=== PATIENT | female | born 1985 | race Caucasian/White ===

== ENCOUNTER 2016-06-21 13:46 | Outpatient (CLI) | payer OTHER ==
--- NOTE | 2016-06-21 17:18 | MRI ---
RIGHT HIP MRI WITHOUT IV CONTRAST: History: 31-year-old female with right sided pain and right hip pain. FINDINGS: Multiplanar, multisequence MRI examination of the right hip is performed. No evidence of abnormal marrow signal within the right hip or femur to suggest avascular necrosis, f racture or acute stress injury. No evidence of multiple or acute tendon injury. There is metallic susceptibility artifact at the region of the right lumbosacral spine secondary to right sided fusion and pedicle screw placement. The internal soft tissue pelvis shows no significant abnormality, ramirez khai, and ovaries are somewhat small. No evidence for hip labral tear. Visualized right sciatic ner ve course appears unremarkable. IMPRESSION: Unremarkable right hip MRI. No evidence for acute internal derangement. POS: [facility]
== END 2016-06-21 13:47 | disposition home or self-care (01) ==
LOC: BURMRI 13:46
PROVIDERS: ATTEND Neurological Surgery
DX: M25.551 Pain in right hip (principal)

== ENCOUNTER 2016-10-22 12:08 | Outpatient (CLI) | payer OTHER ==
--- NOTE | 2016-10-22 21:32 | RAD ---
LUMBAR SPINE: Date: 10-22-16 Comparison: 04-10-16 done at [facility]. Technique: Multiple flexion and extension views were provided. FINDINGS: On the prior study the patient had a grade I spondylolisthesis of L5 on S1 that was measured in the 6-8 mm range. Today's exam shows measurements in the 9-11 mm range in the neutral position. At least one of the vi ews (which actually appears to be an extension) has a 15-16 mm off set reaching the level of a grade II spondylolisthesis of L5 on S1. The area is not seen optimally on today's study but it is clear o verall that the degree of anterior slippage of L5 on S1 is greater than it was in 2016. There also a ppears to be some movement now between flexion and extension (varying from about 9 to 15 mm of off s et). A posterior fusion has been done on the right side at L5-S1 and this appears no different than before. Regarding the SI joints, no sclerosis or gross bony abnormality was seen. IMPRESSION: Interval increase in the anterior slippage of L5 on S1 since 2016. These does appear to be some mobi lity between flexion and extension in the 6 mm range or so. The synthetic disc appears to be in norm al position. POS: HOME
== END 2016-10-22 12:09 | disposition home or self-care (01) ==
LOC: BURRAD 12:08
PROVIDERS: ATTEND Specialist
DX: M53.3 Sacrococcygeal disorders, not elsewhere classified (principal)
CPT/HCPCS: 72110

== ENCOUNTER 2017-02-27 15:42 | Outpatient (CLI) | payer MEDICARE, OTHER ==
--- NOTE | 2017-02-27 21:32 | CT ---
CT LUMBAR SPINE 02/27/[address] of the lumbar spine was performed for evaluation of low back and right groin pain. The pat ient has had a prior posterior fusion at L5-S1 with pedicle screws for spondylolisthesis of L5 on S1 . Bilateral spondylolysis at L5 was noted. The sagittal view shows the right pedicle screw of S1 to angulate inferiorly a bit as well as a smal l lucency near its origin suggesting that there might be a break in the screw itself. Its appearance does not look substantially different than the December or January plain film. Slight lucency around the pedicle screw of S1 on the right was noted on the plain radiograph. It is slightly more lucent arou nd it than the opposite side, but not by much. The left pedicle screw of L5 barely goes through the left pedicle of that level with the rest of the screw to its tip actually lying outside of the vertebra, just lateral to the left side of the verte bral body. The lumbar spine showed no protruding discs, foraminal stenosis, or central canal stenosis at any l evel. There is about 1 cm of anterolisthesis of L5 on S1. No area of bony destruction was seen. IMPRESSION: 1. No acute lumbar findings. 2. Left pedicle screw of L5 has a significant portion of the screw outside of the bony vertebra as described above. 3. Right pedicle screw of S1 angulates downward slightly and has slight lucency around it. The appearance does not seem substantially different than the December plain radiograph. POS: HOME
== END 2017-02-27 15:43 | disposition home or self-care (01) ==
LOC: BURCT 15:42
PROVIDERS: ATTEND Family Medicine
DX: M54.16 Radiculopathy, lumbar region (principal)
CPT/HCPCS: 72131

== ENCOUNTER 2017-03-22 14:20 | Outpatient (CLI) | payer MEDICARE, OTHER ==
--- NOTE | 2017-03-22 22:45 | RAD ---
LUMBAR SPINE TWO VIEWS 03/22/17 Flexion and extension lateral views were obtained. There has been a prior posterior fusion at the L5 -S1 level. There is a prominent spondylolisthesis of L5 on S1. An extension of the L5 vertebra was displaced 1. 7 cm anteriorly. In flexion, it was about 2.0 cm. No abnormal motion was seen elsewhere. IMPRESSION: 3 mm difference between flexion and extension. POS: HOME
== END 2017-03-22 14:21 | disposition home or self-care (01) ==
LOC: BURRAD 14:20
PROVIDERS: ATTEND Specialist
DX: M51.17 Intervertebral disc disorders with radiculopathy, lumbosacral region (principal)
CPT/HCPCS: 72100

== ENCOUNTER 2017-07-10 10:20 | Outpatient (CLI) | payer OTHER ==
--- NOTE | 2017-07-10 21:46 | ULT ---
PELVIC ULTRASOUND WITH TRANSVAGINAL IMAGING 07/10/17 Initially a pelvic ultrasound was done using the abdominal transducer. To see structures better, a sw itch was made to the endovaginal probe. The uterus measured 4.3 x 2.9 x 3.4 cm and had a normal 4 mm thick endometrium. No focal pathology wa s seen in the uterus. Both the right ovary and the left ovary are unremarkable in appearance. The rig ht ovary was 1.8 cm long and the left was 1.7 cm. Blood flow was seen in each. Incidentally noted was a small Nabothian cyst at the cervix that may have some internal debris. IMPRESSION: No acute pelvic finding. POS: HOME
== END 2017-07-10 10:21 | disposition home or self-care (01) ==
LOC: BURULT 10:20
PROVIDERS: ATTEND Nurse Practitioner
DX: R10.2 Pelvic and perineal pain (principal)
CPT/HCPCS: 76856

== ENCOUNTER 2018-06-12 19:25 | Emergency (ER) | payer OTHER | END 2018-06-12 20:00 | disposition home or self-care (01) | LOC: BURERS 19:25 | DX: F41.9 Anxiety disorder, unspecified (principal); K21.9 Gastro-esophageal reflux disease without esophagitis; D64.9 Anemia, unspecified; E03.9 Hypothyroidism, unspecified; E78.5 Hyperlipidemia, unspecified; F32.9 Major depressive disorder, single episode, unspecified; F43.10 Post-traumatic stress disorder, unspecified; F17.210 Nicotine dependence, cigarettes, uncomplicated; Z79.899 Other long term (current) drug therapy | CPT/HCPCS: 99283 ==

== ENCOUNTER 2019-04-16 21:26 | Emergency (ER) | payer MEDICARE, OTHER ==
[2019-04-16 21:53] LABS: Bilirubin Negative (Negative); Blood, Urine Moderate (Negative); Clarity Slightly Cloudy (Clear); Glucose, Urine (Dipstick) Negative (Negative); Leukocyte Small (Negative); Nitrite Negative (Negative); Pregnancy Test - Urine (BHCG) Negative (Negative); Protein, Urine (Dipstick) 30 mg/dL (Neg-Trace)
[2019-04-16 21:54] LABS: Pregu Control Background? CLEAR/WHITE (CLR/WHITE); Pregu Control Bar Appear? YES (CONTROL BAR); Specific Gravity 1.025 (1.002-1.036)
[2019-04-16] MEDS ORDERED: Ondansetron PF 4 MG/2 ML Vial ONE (21:56)
[2019-04-16] MEDS ORDERED: Ketorolac Tromethamine 30 MG/ML VIAL ONE (21:56)
[2019-04-16 21:59] LABS: #Basophils 0.1 thou/uL (0.0-0.2); #Eosinphils 0.1 thou/uL (0.0-0.7); #Lymphocytes 2.7 thou/uL (1.20-3.40); #Monocytes 1.2 thou/uL (0.11-0.59); #Neutrophils 12.6 thou/uL (1.40-6.50); %Basophils 0.5 % (0.0-1.0); %Eosinophils 0.5 % (0.0-10.0); %Lymphocytes 15.9 % (21.0-51.0); %Monocytes 7.4 % (0.0-10.0); %Neutrophils 75.6 % (42.0-75.0); Hemoglobin 14.2 g/dL (12.0-16.0); Mean Corpuscular HGB CONC 32.2 g/dL (32.0-36.0); Mean Platelet Volume 8.3 fL (7.4-10.4); Platelet Count 274 thou/uL (130-400); RBC Distribution Width 13.9 % (11.5-14.5); Red Blood Cell (RBC) Count 4.72 mill/uL (4.20-5.40); White Blood Cell (WBC) Count 16.7 thou/uL (4.8-10.8)
[2019-04-16 22:02] LABS: Bacteria/HPF Rare-Few HPF (None Seen); Squamous Epithelial 0-3 HPF (0-3)
[2019-04-16 22:03] LABS: Calcium Oxalate Crystals 1+ HPF (None Seen)
[2019-04-16 22:12] LABS: ALT (SGPT) 19 U/L (8-55); AST (SGOT) 19 U/L (5-34); Albumin 3.9 g/dL (3.5-5.0); Alkaline Phosphatase 125 U/L (40-110); Anion Gap 13 mmol/L (10-20); BUN (Urea Nitrogen) 16 mg/dL (7.0-18.7); Bilirubin, Total 0.6 mg/dL (0.2-1.2); Calc. Creatinine Clearance 0 mL/min (70-130); Calcium 9.3 mg/dL (7.8-10.44); Carbon Dioxide 25 mmol/L (22-29); Chloride 105 mmol/L (98-107); Estimated GFR-MDRD 80; Globulin 2.7 g/dL (2.4-3.5); Glucose 94 mg/dL (70-105); Lipase 30 U/L (8-78); Protein, Total 6.6 g/dL (6.0-8.3); Sodium 139 mmol/L (136-145)
== END 2019-04-16 22:25 | disposition home or self-care (01) ==
LOC: BURERS 21:26
DX: N20.0 Calculus of kidney (principal); E03.9 Hypothyroidism, unspecified; E78.5 Hyperlipidemia, unspecified; F41.9 Anxiety disorder, unspecified; F32.9 Major depressive disorder, single episode, unspecified; F43.10 Post-traumatic stress disorder, unspecified; F17.210 Nicotine dependence, cigarettes, uncomplicated; Z79.899 Other long term (current) drug therapy
CPT/HCPCS: 80053; 81003; 81015; 81025; 83690; 85025; 96374; 96375; J1885; J2405

== ENCOUNTER 2020-03-15 20:43 | Emergency (ER) | payer MEDICARE ==
[2020-03-15] MEDS ORDERED: hydrOXYzine 25 MG TAB ONE (21:36)
== END 2020-03-15 21:41 | disposition home or self-care (01) ==
LOC: BURERS 20:43
DX: F41.1 Generalized anxiety disorder (principal); F32.9 Major depressive disorder, single episode, unspecified; F17.210 Nicotine dependence, cigarettes, uncomplicated; Z79.899 Other long term (current) drug therapy
CPT/HCPCS: 99283

== ENCOUNTER 2021-03-13 21:40 | Emergency (ER) | payer MEDICARE, OTHER ==
[2021-03-13 22:50] LABS: #Basophils 0.1 thou/uL (0.0-0.2); #Eosinphils 0.1 thou/uL (0.0-0.7); #Lymphocytes 2.5 thou/uL (1.20-3.40); #Monocytes 0.5 thou/uL (0.11-0.59); %Basophils 0.7 % (0.0-1.0); %Eosinophils 1.5 % (0.0-10.0); %Lymphocytes 35.3 % (21.0-51.0); %Monocytes 6.6 % (0.0-10.0); %Neutrophils 55.9 % (42.0-75.0); Hemoglobin 13.6 g/dL (12.0-16.0); Mean Corpuscular HGB CONC 34.3 g/dL (32.0-36.0); Mean Corpuscular Hemoglobin 31.9 pg (27.0-31.0); Mean Corpuscular Volume 92.8 fL (78.0-98.0); Mean Platelet Volume 8.1 fL (7.4-10.4); Platelet Count 248 thou/uL (130-400); RBC Distribution Width 11.8 % (11.5-14.5); Red Blood Cell (RBC) Count 4.27 mill/uL (4.20-5.40); White Blood Cell (WBC) Count 7.1 thou/uL (4.8-10.8)
[2021-03-13] MEDS ORDERED: Ondansetron PF 4 MG/2 ML Vial ONE (22:54)
[2021-03-13] MEDS ORDERED: Morphine 4 MG/ML VIAL ONE (22:54)
[2021-03-13 22:57] LABS: Bilirubin Negative (Negative); Blood, Urine Negative (Negative); Clarity Clear (Clear); Glucose, Urine (Dipstick) Negative (Negative); Ketone, Urine Trace mg/dL (Negative); Leukocyte Trace (Negative); Nitrite Negative (Negative); Protein, Urine (Dipstick) Negative (Neg-Trace); Urobilinogen 0.2 mg/dL (Less than 2); pH, Urine 5.5 (5.0-9.0)
[2021-03-13 22:58] LABS: Specific Gravity, Urine 1.023 (1.002-1.036)
[2021-03-13 23:01] LABS: RBC/HPF None Seen HPF (0-3)
[2021-03-13 23:02] LABS: Bacteria/HPF 2+ HPF (None Seen); Mucous/LPF 1+ LPF (<2+); Trichomonas/HPF None Seen HPF (None Seen); Yeast-Budding None Seen HPF (None Seen); Yeast-Hyphae None Seen HPF (None Seen)
[2021-03-13 23:05] LABS: ALT (SGPT) 27 U/L (8-55); AST (SGOT) 19 U/L (5-34); Albumin 3.9 g/dL (3.5-5.0); Alkaline Phosphatase 78 U/L (40-110); Anion Gap 9 mmol/L (10-20); BUN (Urea Nitrogen) 10 mg/dL (7.0-18.7); Bilirubin, Total 0.5 mg/dL (0.2-1.2); Calc. Creatinine Clearance 0 mL/min (70-130); Calcium 9.3 mg/dL (7.8-10.44); Carbon Dioxide 24 mmol/L (22-29); Chloride 113 mmol/L (98-107); Globulin 2.7 g/dL (2.4-3.5); Glucose 96 mg/dL (70-105); Lipase 35 U/L (8-78); Potassium 3.9 mmol/L (3.5-5.1); Protein, Total 6.6 g/dL (6.0-8.3); Sodium 142 mmol/L (136-145)
[2021-03-13] MEDS ORDERED: Mag-Al Plus 1200 MG/1200 MG/120 MG/30 ML UDCUP ONE (23:33)
[2021-03-13] MEDS ORDERED: Lidocaine Viscous Sol 2% 15 ml UD Cup ONE (23:33)
== END 2021-03-14 00:09 | disposition home or self-care (01) ==
LOC: BURERS 21:40
DX: R10.13 Epigastric pain (principal); N85.8 Other specified noninflammatory disorders of uterus; R10.812 Left upper quadrant abdominal tenderness; R10.811 Right upper quadrant abdominal tenderness; F17.210 Nicotine dependence, cigarettes, uncomplicated
CPT/HCPCS: 80053; 81003; 81015; 83690; 85025; 93005; 96374; 96375; J2270; J2405

== ENCOUNTER 2024-07-06 11:19 | Emergency (ER) | payer OTHER | END 2024-07-06 12:42 | disposition home or self-care (01) | LOC: BURERS 11:19 | DX: S93.401A Sprain of unspecified ligament of right ankle, initial encounter (principal); F17.210 Nicotine dependence, cigarettes, uncomplicated; F17.290 Nicotine dependence, other tobacco product, uncomplicated; X50.1XXA Overexertion from prolonged static or awkward postures, initial encounter | CPT/HCPCS: 99283 ==

== ENCOUNTER 2025-04-07 14:08 | Emergency (ER) | payer OTHER ==
[2025-04-07 15:02] LABS: #Basophils 0.1 thou/uL (0.0-0.2); #Eosinophils 0.1 thou/uL (0.0-0.7); #Lymphocytes 1.7 thou/uL (1.20-3.40); #Monocytes 0.4 thou/uL (0.11-0.59); #Neutrophils 6.6 thou/uL (1.40-6.50); %Basophils 1.4 % (0.0-1.0); %Eosinophils 1.3 % (0.0-10.0); %Lymphocytes 18.9 % (21.0-51.0); %Monocytes 4.4 % (0.0-10.0); %Neutrophils 74.1 % (42.0-75.0); Hematocrit 38.3 % (36.0-47.0); Hemoglobin 14.5 g/dL (12.0-16.0); Mean Corpuscular Hemoglobin 31.0 pg (27.0-31.0); Mean Corpuscular Volume 81.6 fl (78.0-98.0); Platelet Count 332 10x3/uL (130-400); Red Blood Cell (RBC) Count 4.69 mill/uL (4.20-5.40); White Blood Cell (WBC) Count 8.9 10x3/uL (4.8-10.8)
[2025-04-07 15:11] LABS: ALT (SGPT) Less than 7 U/L (Less than 34); AST (SGOT) 19 U/L (11-34); Albumin 3.9 g/dL (3.1-4.5); Alkaline Phosphatase 73 U/L (40-110); Anion Gap 15 mmol/L (10-20); BUN (Urea Nitrogen) 14 mg/dL (7.0-18.7); Bilirubin, Total 0.4 mg/dL (0.3-1.2); Calc. Creatinine Clearance 0 mL/min (70-130); Calcium 9.2 mg/dL (7.8-10.44); Carbon Dioxide 23 mmol/L (22-29); Chloride 106 mmol/L (98-107); Globulin 2.8 g/dL (2.4-3.5); Glucose 100 mg/dL (70-105); Lipase 37 U/L (8-78); Potassium 3.5 mmol/L (3.5-5.1); Sodium 140 mmol/L (136-145)
[2025-04-07 15:13] LABS: Platelet Adequacy Comment Appears Adequate
[2025-04-07 15:16] LABS: Glucose, Urine (Dipstick) Negative (Negative); Leukocyte Trace (Negative); Protein, Urine (Dipstick) Negative (Neg-Trace); Specific Gravity, Urine 1.010 (1.005-1.030)
[2025-04-07 15:20] LABS: MDiff Complete? YES
[2025-04-07 15:37] LABS: CAUTI Indications for Culture Pelvic or flank pain
[2025-04-07 15:38] LABS: Bacteria/HPF 1+ HPF (None Seen)
[2025-04-07 15:39] LABS: Urine Culture Reflex Yes Yes
[2025-04-07] MEDS ORDERED: Ketorolac Tromethamine 30 MG (1 mL) VIAL ONE (17:16)
[2025-04-07] MEDS ORDERED: cefTRIAXone (ROCEPHIN) 1 GM VIAL ONE (17:20)
[2025-04-07] MEDS ORDERED: Lidocaine 1% PF 5 ML VIAL ONE (17:20)
== END 2025-04-07 17:35 | disposition home or self-care (01) ==
LOC: BURERS 14:08
DX: N13.2 Hydronephrosis with renal and ureteral calculous obstruction (principal); N39.0 Urinary tract infection, site not specified; F17.210 Nicotine dependence, cigarettes, uncomplicated; F17.290 Nicotine dependence, other tobacco product, uncomplicated
CPT/HCPCS: 36415; 74176; 80053; 81001; 83605; 83690; 85025; 87086; 96372; J0696; J1885